=== PATIENT | female | born 1945 | race Caucasian/White ===

== ENCOUNTER 2018-12-05 08:12 | Emergency (ER) | payer OTHER ==
[~2018-12-05] VITALS: Ht 165.1 cm; Wt 77.1 kg
--- NOTE | 2018-12-05 08:17 | NUR ---
er at bedside but pt wants to complete her cell phone converssation first.
--- NOTE | 2018-12-05 08:29 | NUR ---
pt bib ra [id number] from a [facility]. pt co nrck pain and right shoulder pain. pt able to move all extremeties.
--- NOTE | 2018-12-05 08:35 | NUR ---
in room with md to help translation. pt able to communicate in j[place]ese. pt examination interrupted with pt cell phone calls multiple time. pt talking over the phone with no difficulty.
[2018-12-05] MEDS ORDERED: NAPROXEN 500 MG TABLET PO ONE (09:00)
--- NOTE | 2018-12-05 09:05 | NUR ---
[employer] officer at bedside
[2018-12-05] MEDS ORDERED: NAPROXEN 500 MG TABLET ONE (09:06)
--- NOTE | 2018-12-05 09:14 | NUR ---
pt to radiology department
--- NOTE | 2018-12-05 11:41 | NUR ---
Patient discharged to home in stable conditon. Written and verbal after care instructions given. Patient verbalizes understanding of instructions.pt walks in steady gait. pt accompanied by son.
[2018-12-05 11:42] VITALS: BP 119/77
== END 2018-12-05 11:44 | disposition home or self-care (01) ==
LOC: ER 08:12 → EDBD 08:12 → ER 11:44
DX: S13.4XXA Sprain of ligaments of cervical spine, initial encounter (principal); S70.11XA Contusion of right thigh, initial encounter; S49.91XA Unspecified injury of right shoulder and upper arm, initial encounter; Z88.6 Allergy status to analgesic agent; V49.49XA Driver injured in collision with other motor vehicles in traffic accident, initial encounter; Y93.89 Activity, other specified; Y92.89 Other specified places as the place of occurrence of the external cause; Y99.8 Other external cause status
CPT/HCPCS: 70450; 72125; 73030; 73551; A4663

== ENCOUNTER 2022-02-01 13:44 | Emergency (ER) | payer BC, OTHER ==
[~2022-02-01] VITALS: Ht 162.6 cm; Wt 77.1 kg
--- NOTE | 2022-02-01 14:37 | NUR ---
patient brought in by rescue. patient complaining about fever and vomiting. patient just flew in from [place] vomiting in the plane and off the plane. patient is here a febrile at this time with generalized weakness.
--- NOTE | 2022-02-01 14:42 | NUR ---
patient waiting to be seen by ER physician.
[2022-02-01 15:38] LABS: HEMATOCRIT 36.3 % (31.2-41.9); MEAN CORPUSCULAR HEMOGLOBIN 30.1 uug (24.7-32.8); MEAN CORPUSCULAR VOLUME 89.8 fL (75.5-95.3); PLATELET COUNT (AUTO) 140 K/uL (179-408)
[2022-02-01 16:00] LABS: ALANINE AMINOTRANSFERASE 24 U/L (14-59); ALKALINE PHOSPHATASE 61 U/L (50-136); ASPARTATE AMINOTRANSFERASE 12 U/L (15-37); BILIRUBIN,DIRECT 0.1 mg/dL (0.0-0.2); BILIRUBIN,TOTAL 0.4 mg/dL (0.2-1.0); CARBON DIOXIDE 26 mmol/L (21-32); CHLORIDE 101 mmol/L (98-107); CREATININE 1.3 mg/dL (0.6-1.3); GLUCOSE 109 mg/dL (74-106); POTASSIUM 3.7 mmol/L (3.5-5.1); UREA NITROGEN, BLOOD 15 mg/dL (7-18)
--- NOTE | 2022-02-01 16:54 | NUR ---
informed Dr. Heredia patient is rapid is positive for covid.
[2022-02-01] MEDS ORDERED: DEXAMETHASONE SOD PHOSPHATE 10 MG INJ ONE (17:50)
[2022-02-01] MEDS ORDERED: AZITHROMYCIN 250 MG TABLET ONE (17:50)
[2022-02-01] MEDS ORDERED: Paxlovid (17:52)
[2022-02-01] MEDS ORDERED: PRED50TA PO (17:52)
[2022-02-01] MEDS ORDERED: AZIT500T PO (17:52)
[2022-02-01] MEDS: AZITHROMYCIN 250 MG TABLET PO ONE (17:54)
[2022-02-01] MEDS: DEXAMETHASONE SOD PHOSPHATE 4 MG INJ IV ONE (17:54)
== END 2022-02-01 18:49 | disposition home or self-care (01) ==
LOC: ER 13:44
DX: U07.1 COVID-19 (principal); J18.8 Other pneumonia, unspecified organism; Z87.01 Personal history of pneumonia (recurrent); Z88.6 Allergy status to analgesic agent; K21.9 Gastro-esophageal reflux disease without esophagitis; R94.31 Abnormal electrocardiogram [ECG] [EKG]
CPT/HCPCS: 71045; 80048; 80076; 83605; 83880; 84145; 84484; 85025; 85730; 87040 ×2; 87426; 93005; 96374; 99285; J1100; A4663; J7040; Q0144